=== PATIENT | female | born 1980 | race Caucasian/White ===

== ENCOUNTER 2017-04-15 19:07 | Emergency (ER) | payer BC ==
[2017-04-15 19:18] VITALS: BP 153/95; PULSE 83; TEMP 98.2; BMI 43.4
--- NOTE | 2017-04-15 20:08 | PDOC ---
History of Present Illness - General History Source: Patient Exam Limitations: No Limitations - History of Present Illness Presenting Symptoms: Chest Pain <Anca Polanco - Last Filed: 04/16/17 03:43> <Anna Angel I - Last Filed: 04/17/17 05:50> - General Chief Complaint: Pain Stated Complaint: CHEST PAIN Time Seen by Provider: 04/15/17 19:28 - History of Present Illness Initial Comments: 04/15/17 20:34 36-year-old female with a history of IDDM, hypertension presents to the emergency department complaining of 4/10 achy nonradiating intermittent discomfort 2 hours without nausea/vomiting, fever/chills, headache, dizziness, lightheadedness, visual disturbance, neck pains, back pains, shortness of breath , abdominal pains, urinary symptoms. Patient states she was sitting in the car with her as a front belted passenger. Patient denies having any arguments. Patient denies prolonged sitting, recent travels,on BCP. No pain is exacerbated on deep inspiration and movement and alleviated at rest. (Anca Polanco) 04/17/17 05:50 Pt seen by Midlevel Provider under my direct supervision. Documentation has been prepared under my direction and personally reviewed by me in its entirety. I attest that this document accurately reflects all work, treatment, procedures and medical decision-making performed. I agree with plan as outlined by Midlevel Provider. (Anna Angel I) Past History - Past Medical History Diabetes: Yes (IDDM) HTN: Yes - Psycho/Social/Smoking Cessation Hx Anxiety: No Suicidal Ideation: No Smoking Status: No Smoking History: Never smoked Have you smoked in the past 12 months: No Information on smoking cessation initiated: No Hx Alcohol Use: No Drug/Substance Use Hx: No Substance Use Type: None <Anca Polanco - Last Filed: 04/16/17 03:43> <Anna Angel I - Last Filed: 04/17/17 05:50> - Past Medical History Allergies/Adverse Reactions: Allergies Allergy/AdvReac Type Severity Reaction Status Date / Time No Known Allergies Allergy Verified 04/15/17 19:16 Home Medications: Ambulatory Orders Labetalol HCl 100 mg PO BID 06/07/13 Insulin Glargine,Hum.rec.anlog [Tounaifo Solostar] 80 unit SQ HS 12/15/15 Insulin Sliding Scale [Novolog Vial Sliding Scale -] 0 units SQ BIDAC 12/15/15 Metformin HCl [Glucophage -] 500 mg PO ASDIR 12/15/15 Review of Systems - Review of Systems Able to Perform ROS?: Yes Is the patient limited Lithuanian proficient: No <Anca Polanco - Last Filed: 04/16/17 03:43> <Anna Angel I - Last Filed: 04/17/17 05:50> - Review of Systems Comments:: 04/15/17 20:33 CONSTITUTIONAL: Absent: fever, chills, diaphoresis, generalized weakness, malaise, loss of appetite HEENT: Absent: rhinorrhea, nasal congestion, throat pain, throat swelling, difficulty swallowing, mouth swelling, ear pain, eye pain, visual Changes CARDIOVASCULAR: +chest Pain Absent: loss of consciousness, palpitations, irregular heart rate, peripheral edema RESPIRATORY: Absent: cough, shortness of breath, dyspnea with exertion, orthopnea, wheezing, stridor, hemoptysis GASTROINTESTINAL: Absent: abdominal pain, abdominal distension, nausea, vomiting, diarrhea, constipation, melena, hematochezia GENITOURINARY: Absent: dysuria, frequency, urgency, hesitancy, hematuria, flank pain, genital pain MUSCULOSKELETAL: Absent: myalgia, arthralgia, joint swelling SKIN: Absent: rash, itching, pallor HEMATOLOGIC/IMMUNOLOGIC: Absent: easy bleeding, easy bruising, lymphadenopathy, frequent infections ENDOCRINE: Absent: unexplained weight gain, unexplained weight loss, heat intolerance, cold intolerance NEUROLOGIC: Absent: headache, focal weakness or paresthesias, dizziness, unsteady gait, seizure, mental status changes, bladder or bowel incontinence PSYCHIATRIC: Absent: anxiety, depression, suicidal or homicidal ideation, hallucinations. (Anca Polanco) *Physical Exam <Anca Polanco - Last Filed: 04/16/17 03:43> <Anna Angel I - Last Filed: 04/17/17 05:50> - Vital Signs Last Vital Signs Temp Pulse Resp BP Pulse Ox 98.2 F 83 18 153/95 98 04/15/17 19:16 04/15/17 19:16 04/15/17 19:16 04/15/17 19:16 04/15/17 19:16 - Physical Exam Comments: 04/15/17 20:33 GENERAL: Well developed, well nourished. Awake and alert. No acute distress. HEENT: Normocephalic, atraumatic. PERRLA, EOMI. No conjunctival pallor. Sclera are non- icteric. Moist mucous membranes. Oropharynx is clear. NECK: Supple. Full ROM. No JVD. Carotid pulses 2+ and symmetric, without bruits. No thyromegaly. No lymphadenopathy. CARDIOVASCULAR: Regular rate and rhythm. No murmurs, rubs, or gallops. Distal pulses are 2+ and symmetric. PULMONARY: No evidence of respiratory distress. Lungs clear to auscultation bilaterally. No wheezing, rales or rhonchi. ABDOMINAL: Soft. Non-tender. Non-distended. No rebound or guarding. No organomegaly. Normoactive bowel sounds. MUSCULOSKELETAL Normal range of motion at all joints. No bony deformities or tenderness. No CVA tenderness. EXTREMITIES: No cyanosis. No clubbing. No edema. No calf tenderness. SKIN: Warm and dry. Normal capillary refill. No rashes. No jaundice. NEUROLOGICAL: Alert, awake, appropriate. Cranial nerves 2-12 intact. No deficits to light touch and temperature in face, upper extremities and lower extremities. No motor deficits in the in face, upper extremities and lower extremities. Normoreflexic in the upper and lower extremities. Normal speech. Toes are down- going bilaterally. Gait is normal without ataxia. PSYCHIATRIC: Cooperative. Good eye contact. Appropriate mood and affect. (Anca Polanco) Heart Score/ECG Review - History History: Slightly suspicious - Electrocardiogram EKG: Normal - Age Age: >/= 65 - Risk Factors Risk Factors Heart Score: Yes Hx Hypertension, Yes Hx Diabetes, Yes Hx Obesity Based on the list above the patient has:: 1-2 risk factors - Troponin Troponin: </= normal limit - Score Heart Score - Total: 3 <Anca Polanco - Last Filed: 04/16/17 03:43> ED Treatment Course - LABORATORY CBC & Chemistry Diagram: 04/15/17 19:52 04/15/17 19:52 <Anca Polanco - Last Filed: 04/16/17 03:43> - LABORATORY CBC & Chemistry Diagram: 04/15/17 19:52 04/15/17 19:52 <Anna Angel I - Last Filed: 04/17/17 05:50> - ADDITIONAL ORDERS Additional order review: 04/15/17 19:52 RBC 4.80 MCV 83.2 MCHC 33.0 RDW 13.3 MPV 8.6 Neutrophils % 61.2 Lymphocytes % 30.2 Monocytes % 6.6 Eosinophils % 1.4 Basophils % 0.6 Progress Note <Anca Polanco - Last Filed: 04/16/17 03:43> <Anna Angel I - Last Filed: 04/17/17 05:50> - Progress Note Progress Note: 2135hrs: Will repeat Cardiac profile at 2am. If neg, will send home. Pt ok with plan. (Anca Polanco) *DC/Admit/Observation/Transfer - Discharge Dispostion Admit: No <Anca Polanco - Last Filed: 04/16/17 03:43> <Anna Angel I - Last Filed: 04/17/17 05:50> Diagnosis at time of Disposition: Atypical chest pain - Discharge Dispostion Disposition: HOME Condition at time of disposition: Stable - Referrals Referrals: Naomi Mnuoz MD [Primary Care Provider] - Henry Clifton MD [Staff Physician] - - Patient Instructions Printed Discharge Instructions: DI for Atypical Chest Pain Additional Instructions: Follow-up with your physician and the restaurant line cook listed on your discharge. You should consider having a stress test. Return back to the emergency department for severe/persistent or worsening symptoms.
[2017-04-15 20:12] LABS: BASOPHIL 0.6 % (0-2.0); EOSINOPHIL 1.4 % (0-4.5); MCH 27.4 pg (25.7-33.7); MEAN CELL VOLUME 83.2 fl (80-96); MEAN PLT VOLUME 8.6 fl (7.5-11.1); NEUTROPHILS 61.2 % (42.8-82.8); PLATELET COUNT 249 K/MM3 (134-434); RDW 13.3 % (11.6-15.6)
[2017-04-15 20:13] LABS: URINE APPEARANCE CLEAR; URINE BILIRUBIN NEGATIVE (NEGATIVE); URINE BLOOD NEGATIVE (NEGATIVE); URINE COLOR LTYELLOW; URINE GLUCOSE (UA) NEGATIVE (NEGATIVE); URINE KETONE NEGATIVE (NEGATIVE); URINE LEUK ESTERASE NEGATIVE (NEGATIVE); URINE NITRITE NEGATIVE (NEGATIVE); URINE PROTEIN NEGATIVE (NEGATIVE); URINE UROBILINOGEN NEGATIVE mg/dL (0.2-1.0)
[2017-04-15 20:46] LABS: ALBUMIN 3.7 g/dl (3.4-5.0); ANION GAP 6 (8-16); BILIRUBIN,TOTAL 0.3 mg/dL (0.2-1.0); CALCIUM 8.8 mg/dL (8.5-10.1); CO2 28 mmol/L (21-32); CREATININE 0.7 mg/dL (0.55-1.02); GLUCOSE,RANDOM 111 mg/dL (74-106); SGOT/AST 35 U/L (15-37); SGPT/ALT 42 U/L (12-78); TOT PROT 7.5 g/dl (6.4-8.2)
[2017-04-15 20:48] LABS: ALK PHOS 70 U/L (45-117); CPK 217 IU/L (26-192); TROPONIN I < 0.02 ng/ml (0.00-0.05)
[2017-04-16 03:26] LABS: CPK 185 IU/L (26-192); TROPONIN I < 0.02 ng/ml (0.00-0.05)
== END 2017-04-16 04:16 | disposition home or self-care (01) ==
LOC: JER 19:07
DX: R07.89 Other chest pain (principal); I10 Essential (primary) hypertension; E10.9 Type 1 diabetes mellitus without complications; Z79.4 Long term (current) use of insulin
CPT/HCPCS: 36415; 80053; 81003; 82553; 84484; 84703; 85025; 99282-25

== ENCOUNTER 2018-10-03 18:21 | Emergency (ER) | payer BC ==
[2018-10-03 18:58] VITALS: BP 150/96; PULSE 90; TEMP 97.7; BMI 35.0
[2018-10-03] MEDS ORDERED: PSEUDOEPHEDRINE HCL 30 MG TABLET PO ONE (19:21)
[2018-10-03] MEDS ORDERED: PSEUDOEPHEDRINE HCL 60 MG TABLET ONE (19:27)
--- NOTE | 2018-10-03 19:28 | PDOC ---
History of Present Illness - General Chief Complaint: Pain Stated Complaint: PAIN Time Seen by Provider: 10/03/18 19:15 - History of Present Illness Initial Comments: 10/03/18 19:24 38-year-old insulin-dependent diabetic with polycystic ovarian disease she is on an insulin pump and takes metformin presents for evaluation of sinus congestion and left ear congestion. She was treated for sinusitis with amoxicillin and her symptoms although improved have never really gone away. She is on the last day for amoxicillin Past History - Past Medical History Allergies/Adverse Reactions: Allergies Allergy/AdvReac Type Severity Reaction Status Date / Time No Known Allergies Allergy Verified 10/03/18 18:54 Home Medications: Ambulatory Orders Insulin Sliding Scale [Novolog Vial Sliding Scale -] 0 units SQ BIDAC 12/15/15 metFORMIN HCL [Glucophage -] 500 mg PO ASDIR 12/15/15 Amoxicillin - [Amoxicillin 875mg Tablet -] 875 mg PO BID 10/03/18 Budesonide [Rhinocort Allergy] 1 spray NS ONCE #1 spray.pump 10/03/18 COPD: No Diabetes: Yes (insulin pump) HTN: Yes - Suicide/Smoking/Psychosocial Hx Smoking Status: No Smoking History: Never smoked Have you smoked in the past 12 months: No Hx Alcohol Use: No Drug/Substance Use Hx: No Substance Use Type: None Review of Systems - Review of Systems Constitutional: No: Fever HEENTM: Yes: Ear Pain, Nose Congestion *Physical Exam - Vital Signs Last Vital Signs Temp Pulse Resp BP Pulse Ox 97.7 F 90 20 150/96 100 10/03/18 18:57 10/03/18 18:57 10/03/18 18:57 10/03/18 18:57 10/03/18 18:57 - Physical Exam Comments: 10/03/18 19:25 HEAD: NC/AT EYES: Conjuntiva clear Ears: Canals and TM's slightly bulging left greater than right. There is no visible effusion no erythema no indication of infection NOSE: No d/c THROAT: Moist mucous membrances, oral pharanx clear, uvula midline NECK: Supple without adenopathy CARDIAC: S1 S2 LUNGS: CTA Full and Equal breath sounds ABDOMEN: Soft NT ND MS: Full ROM in all joints without edema NEUROLOGIC: No gross sensory or motor deficits, NVID SKIN: Normal color and temperature no lesions or rashes Moderate Sedation - Procedure Monitoring Vital Signs: Procedure Monitoring Vital Signs Temperature 97.7 F 10/03/18 18:57 Pulse Rate 90 10/03/18 18:57 Respiratory Rate 20 10/03/18 18:57 Blood Pressure 150/96 10/03/18 18:57 O2 Sat by Pulse Oximetry (%) 100 10/03/18 18:57 Medical Decision Making - Medical Decision Making 10/03/18 19:26 This is most likely sinusitis otitis media was unlikely. I will treat her with a steroid all nasal spray. I've explained her to only use this for the next 3 days because she is a diabetic and this will spike her blood sugar and she will adjust her insulin accordingly. I will also give her a one-time dose of Sudafed to open up her sinuses and have her follow-up with ENT with instructions to return to the emergency room should symptoms worsen. *DC/Admit/Observation/Transfer Diagnosis at time of Disposition: Sinus congestion - Discharge Dispostion Disposition: HOME Condition at time of disposition: Stable Decision to Admit order: No - Prescriptions Prescriptions: Budesonide [Rhinocort Allergy] 1 spray NS ONCE #1 spray.pump - Referrals Referrals: Laine Chacon MD [Primary Care Provider] - Adriano Gallagher MD [Staff Physician] - - Patient Instructions Additional Instructions: You were treated in the emergency room with a single dose of Sudafed. Do not take this medication at home as it will raise her blood pressure. Only is a steroid nasal spray for the next 3-5 days as this will raise her blood sugar. Return to the emergency room for worsening symptoms and follow-up with ear nose and throat doctor in 1-2 days for further evaluation and treatment options. - Post Discharge Activity
== END 2018-10-03 19:34 | disposition home or self-care (01) ==
LOC: JERFT 18:21
DX: J34.89 Other specified disorders of nose and nasal sinuses (principal); E10.9 Type 1 diabetes mellitus without complications; Z79.4 Long term (current) use of insulin; Z96.41 Presence of insulin pump (external) (internal); E28.2 Polycystic ovarian syndrome
CPT/HCPCS: 99281-25